=== PATIENT | female | born 1990 | race African-American/Black ===

== ENCOUNTER 2017-11-17 14:50 | Outpatient (CLI) | payer MEDICAID, OTHER ==
[2017-11-17 18:48] LABS: BASOPHILS % (AUTO) 0.4 %; EOSINOPHILS % (AUTO) 0.7 %; HGB - HEMOGLOBIN 11.3 g/dL (12.0-16.0); LYMPHOCYTES % (AUTO) 48.3 %; MEAN CORPUSCULAR HEMOGLOBIN 22.9 pg (27.0-31.0); MEAN CORPUSCULAR HGB CONC 31.4 g/dL (32.0-36.0); MEAN CORPUSCULAR VOLUME 73.2 fL (81.0-99.0); MEAN PLATELET VOLUME 8.8 fL (7.9-10.8); MONOCYTES # (AUTO) 0.3 10^3/uL (0.0-1.0); MONOCYTES % (AUTO) 4.8 %; NEUTROPHILS # (AUTO) 2.9 10^3/uL (1.5-6.6); NEUTROPHILS % (AUTO) 45.8 %; PLT - PLATELET COUNT 277 10^3/uL (130-450); RED BLOOD COUNT 4.91 10^6/uL (4.20-5.40); WHITE BLOOD COUNT 6.2 x10^3/uL (4.8-10.8)
[2017-11-17 19:27] LABS: ALBUMIN 4.5 g/dL (3.2-5.5); ALBUMIN/GLOBULIN RATIO 1.5 (1.0-2.2); ALKALINE PHOSPHATASE 31 IU/L (42-121); ALT ALANINE AMINOTRANSFERASE 33 IU/L (10-60); AST ASPARTATE AMINOTRANSFERASE 27 IU/L (10-42); BILIRUBIN,TOTAL 0.6 mg/dL (0.2-1.0); BUN - BLOOD UREA NITROGEN 13 mg/dL (6-20); CARBON DIOXIDE - CO2 23 mmol/L (21-32); CHLORIDE 105 mmol/L (101-111); CHOL/HDL RATIO 2.4 (<4.4); CHOLESTEROL 161 mg/dL; CREATININE 0.7 mg/dL (0.4-1.0); GFR - MDRD 120 (>89); GLUCOSE 86 mg/dL (70-100); HDL CHOLESTEROL 67 mg/dL; LDL CHOLESTEROL,CALCULATED 86 mg/dL; LDL/HDL RATIO 1.3 (<4.4); SODIUM 138 mmol/L (135-145); TOTAL PROTEIN 7.5 g/dL (6.7-8.2); VLDL CHOLESTEROL 8 mg/dL
== END 2017-11-17 14:51 ==
LOC: LAB.N 14:50
PROVIDERS: ATTEND Nurse Practitioner Gerontology
DX: Z13.9 Encounter for screening, unspecified (principal)
CPT/HCPCS: 36415; 80053; 80061; 83721; 84443; 85025

== ENCOUNTER 2020-08-23 15:18 | Outpatient (CLI) | payer MEDICAID ==
--- NOTE | 2020-08-23 17:01 | Ultrasound Report ---
PROCEDURE: Pelvic w/Transvaginal INDICATIONS: RT SIDE OVARIAN CYST TECHNIQUE: Real-time scanning was performed of the pelvic organs, with image documentation. Additional endovagi nal scanning was necessary due to incomplete visualization of the adnexal and endometrial structures by transabdominal scanning. COMPARISON: None. FINDINGS: Transabdominal scanning: Limited scanning through the kidneys shows no hydronephrosis. No pathologi c free abdominal or pelvic fluid. Endovaginal scanning: Uterus: Uterus is normal in size at 8.8 x 4.6 x 5.4 cm. The endometrium measures 10 mm in combined thickness. Uterine echotexture is heterogenous. A submucosal fibroid measuring 2.7 x 2.0 x 2.5 cm is seen in the anterior uterus. The cervix has nabothian cyst but is otherwise normal. Ovaries: The right ovary measures 3.1 x 2.2 x 2.8 cm and has multiple subcentimeter follicles (less than 12). The left ovary measures 4.4 x 2.9 x 2.9 cm and has multiple subcentimeter follicles. A 2.6 x 2.5 x 2.6 cm cyst in the left ovary has a crenated appearance, possibly due to recent rupture. Adnexa: There is free fluid in the left adnexa. Kidneys: The right kidney is normal. The left kidney has a hyperechoic focus measuring 8 x 9 x 8 mm l ikely an angiomyolipoma. IMPRESSION: 1. Subcentimeter follicles in the right ovary. No right ovarian cyst. 2. A dominant cyst in the left ovary measuring 2.6 x 2.5 x 2.6 cm has a crenated appearance and adjac ent free fluid, possibly due to recent ruptured cyst. 3. Subcentimeter left renal benign angiomyolipoma. Reviewed by: Abdoulaye Aldana on 08/23/2020 5:00 PM PST Approved by: Abdoulaye Aldana on 08/23/2020 5:00 PM PST Station ID: [id number]
== END 2020-08-23 15:19 | disposition home or self-care (01) ==
LOC: DI 15:18
PROVIDERS: ATTEND Physician Assistant
DX: N83.202 Unspecified ovarian cyst, left side (principal); D17.71 Benign lipomatous neoplasm of kidney
CPT/HCPCS: 76830; 76856

== ENCOUNTER 2021-09-29 17:44 | Emergency (ER) | payer MEDICAID ==
--- NOTE | 2021-09-29 18:04 | ED Physician Documentation ---
History of Present Illness - Stated complaint Stated Complaint: CP - Chief complaint Chief Complaint: Cardiac - Additonal information Additional information: 31-year-old female presents emergency department for evaluation of left sided chest pain. Began a few hours prior to arrival. She reports that it hurts when she takes a deep breath. She sometimes has relief of the pain when she puts pressure on the ribs under her breast but when she releases the pressure the pain comes back. No cough, no fevers. No personal history of DVT or cancer. She is not on any hormones. She did travel via airplane to [facility] in late August. Does not know her family history she is adopted. She is a daily tobacco user as well as cannabis. No history of similar in the past. Denies any pertinent past medical history otherwise. Review of Systems Constitutional: denies: Fever, Chills Eyes: reports: Reviewed and negative Ears: reports: Reviewed and negative Nose: reports: Reviewed and negative Throat: reports: Reviewed and negative Cardiac: reports: Chest pain / pressure. denies: Palpitations, Pedal edema, Calf pain Respiratory: denies: Dyspnea, Cough GI: reports: Reviewed and negative : reports: Reviewed and negative Skin: reports: Reviewed and negative Musculoskeletal: reports: Reviewed and negative Neurologic: reports: Reviewed and negative PD PAST MEDICAL HISTORY - Present Medications Home Medications: Ambulatory Orders Medication Instructions Recorded Confirmed No Known Home Medications 09/29/21 09/29/21 - Allergies Allergies/Adverse Reactions: Allergies Allergy/AdvReac Type Severity Reaction Status Date / Time No Known Drug Allergies Allergy Verified 09/29/21 17:53 PD ED PE NORMAL - General General: Alert and oriented X 3, No acute distress - HEENT HEENT: PERRL - Neck Neck: Supple, no meningeal sign - Cardiac Cardiac: RRR, No murmur, No gallop, No rub, Strong equal pulses, Other (Unable to elicit tenderness with palpation of left lateral chest) - Respiratory Respiratory: No respiratory distress, Clear bilaterally - Abdomen Abdomen: Normal bowel sounds, Soft, Non tender, Non distended - Derm Derm: Normal color, Warm and dry, No rash - Extremities Extremities: No: No deformity, No tenderness to palpate, Normal ROM s pain - Neuro Neuro: Alert and oriented X 3, 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, No motor deficit Eye Opening: Spontaneous Motor: Obeys Commands Verbal: Oriented GCS Score: 15 - Psych Psych: Normal mood Results - Vitals Vitals: Vital Signs - 24 hr 09/29/21 09/29/21 17:49 17:53 Temperature 36.6 C 36.6 C Heart Rate 86 86 Respiratory 16 16 Rate Blood Pressure 130/73 130/73 O2 Saturation 97 97 Oxygen O2 Source Room air - EKG (time done) 1749 Rate: Rate (enter#) (68) Rhythm: NSR [place]: Normal Intervals: Normal CT QRS: Normal Ischemia: Normal ST segments Compare to prior EKG: Old EKG unavailable Computer interpretation: Agree with computer - Labs Labs: Laboratory Tests 09/29/21 09/29/21 09/29/21 18:02 18:02 18:02 WBC 7.0 RBC 4.93 Hgb 12.1 Hct 37.0 MCV 75.1 L MCH 24.5 L MCHC 32.7 RDW 13.2 Plt Count 318 MPV 10.3 Neut # (Auto) 3.0 Lymph # (Auto) 3.4 Martin # (Auto) 0.5 Eos # (Auto) 0.1 Baso # (Auto) 0.0 Absolute Nucleated RBC 0.00 Nucleated RBC % 0.0 D-Dimer < 200.0 L Sodium 134 L Potassium 3.9 Chloride 101 Carbon Dioxide 24 Anion Gap 9.0 BUN 14 Creatinine 0.8 Estimated GFR (MDRD) 100 Glucose 88 Calcium 8.7 Total Bilirubin 0.5 AST 22 ALT 29 Alkaline Phosphatase 35 L Troponin I High Sens Total Protein 7.3 Albumin 4.2 Globulin 3.1 Albumin/Globulin Ratio 1.4 Lipase 20 L Serum HCG, Qual 09/29/21 09/29/21 18:02 18:02 WBC RBC Hgb Hct MCV MCH MCHC RDW Plt Count MPV Neut # (Auto) Lymph # (Auto) Martin # (Auto) Eos # (Auto) Baso # (Auto) Absolute Nucleated RBC Nucleated RBC % D-Dimer Sodium Potassium Chloride Carbon Dioxide Anion Gap BUN Creatinine Estimated GFR (MDRD) Glucose Calcium Total Bilirubin AST ALT Alkaline Phosphatase Troponin I High Sens < 2.3 L Total Protein Albumin Globulin Albumin/Globulin Ratio Lipase Serum HCG, Qual NEGATIVE - Rads (name of study) CXR Radiology: Final report received (No acute cardiopulmonary pathology.) PD MEDICAL DECISION MAKING - ED course Complexity details: reviewed results, re-evaluated patient, considered differential, d/w patient ED course: This is a well-appearing 31-year-old female presents emergency department for acute onset left-sided chest pain that began this afternoon. She reports it is worse when she bends forward to and she has relief of pain when she presses on the ribs under her breast. There has been no cough or fevers. Patient is PERC negative. Screening EKG is nonischemic. No findings suggestive of pericarditis. Blood count and elect lites including a troponin are also without acute fi ndings. Chest x-ray showed no acute focal opacity. Initially patient declined any pain medication but on reassessment agreed to some Toradol. Given that this pain is worse with movement and bending forward and seems relieved when she puts pressure on her ribs I do suspect that she has a musculoskeletal condition or costochondritis. I have advised her to use some ibuprofen with food 3 times a day for the next few days. We discussed emergent return precautions for fevers syncope worsening symptoms. Departure - Departure Disposition: 01 Home, Self Care Clinical Impression: Chest pain Qualifiers: Chest pain type: intercostal pain Qualified Code(s): R07.82 - Intercostal pain Condition: Stable Record reviewed to determine appropriate education?: Yes Instructions: ED Chest Pain Costochondritis Comments: You are seen today in the emergency department for chest pain. Your screening EKG and labs are all essentially normal. Your chest x-ray does not show any worrisome findings. As we discussed at the bedside the cause of your chest pain is most likely related to some mild muscle inflammation between the muscles of your ribs. I do recommend that you take ibuprofen 600 mg with food 2-3 times a day for the next few days. If despite this, or you develop fevers higher than 102, you have any fainting episodes or severe shortness of breath then please return immediately to the ER for second evaluation
[2021-09-29 18:09] LABS: BASOPHILS % (AUTO) 0.3 %; EOSINOPHILS # (AUTO) 0.1 10^3/uL (0.0-0.7); EOSINOPHILS % (AUTO) 1.6 %; HGB - HEMOGLOBIN 12.1 g/dL (12.0-16.0); LYMPHOCYTES # (AUTO) 3.4 10^3/uL (1.5-3.5); LYMPHOCYTES % (AUTO) 47.9 %; MEAN CORPUSCULAR HEMOGLOBIN 24.5 pg (27.0-31.0); MEAN CORPUSCULAR HGB CONC 32.7 g/dL (32.0-36.0); MEAN CORPUSCULAR VOLUME 75.1 fL (81.0-99.0); MEAN PLATELET VOLUME 10.3 fL (7.9-10.8); MONOCYTES # (AUTO) 0.5 10^3/uL (0.0-1.0); MONOCYTES % (AUTO) 7.3 %; NEUTROPHILS % (AUTO) 42.8 %; PLT - PLATELET COUNT 318 10^3/uL (130-450); RED BLOOD COUNT 4.93 10^6/uL (4.20-5.40); RED CELL DISTRIBUTION WIDTH 13.2 % (12.0-15.0)
[2021-09-29 18:24] LABS: ALBUMIN 4.2 g/dL (3.2-5.5); ALBUMIN/GLOBULIN RATIO 1.4 (1.0-2.2); BILIRUBIN,TOTAL 0.5 mg/dL (0.2-1.0); CALCIUM 8.7 mg/dL (8.5-10.3); CREATININE 0.8 mg/dL (0.4-1.0); POTASSIUM 3.9 mmol/L (3.5-5.0); TOTAL PROTEIN 7.3 g/dL (6.7-8.2)
--- NOTE | 2021-09-29 18:25 | XRAY Report ---
PROCEDURE: Chest 1 View X-Ray INDICATIONS: Chest Pain TECHNIQUE: One view of the chest was acquired. COMPARISON: None. FINDINGS: SUPPORT DEVICES: None. LUNGS/PLEURA: No focal consolidation, pleural effusion or space-occupying pneumothorax. MEDIASTINUM: The cardiomediastinal silhouette is within normal limits. BONES/SOFT TISSUES: No acute abnormality. IMPRESSION: 1.No acute cardiopulmonary abnormality. Reviewed by: Garett Bess MD on 09/29/2021 6:[address] [facility] Approved by: Garett Bess MD on 09/29/2021 6:[address] [facility] Station ID: [id number]
[2021-09-29 18:32] LABS: HCG,QUALITATIVE BLOOD NEGATIVE
[2021-09-29] MEDS ORDERED: KETOROLAC 60 MG/2 ML VIAL IM STA (18:46)
[2021-09-29 19:02] VITALS: BP 126/72
== END 2021-09-29 19:02 | disposition home or self-care (01) ==
LOC: ED 17:44
DX: R07.82 Intercostal pain (principal); Z72.0 Tobacco use
CPT/HCPCS: 36415; 80053; 83690; 84484; 84703; 85025; 85379; 93005; 99284

== ENCOUNTER 2024-04-05 11:28 | Outpatient (CLI) | payer MEDICAID ==
[2024-04-05 11:42] LABS: BASOPHILS % (AUTO) 0.4 %; EOSINOPHILS # (AUTO) 0.1 10^3/uL (0.0-0.7); EOSINOPHILS % (AUTO) 1.3 %; HCT - HEMATOCRIT 39.2 % (37.0-47.0); HGB - HEMOGLOBIN 12.5 g/dL (12.0-16.0); LYMPHOCYTES # (AUTO) 3.1 10^3/uL (1.5-3.5); LYMPHOCYTES % (AUTO) 38.7 %; MEAN CORPUSCULAR HEMOGLOBIN 23.9 pg (27.0-31.0); MEAN CORPUSCULAR HGB CONC 31.9 g/dL (32.0-36.0); MEAN PLATELET VOLUME 10.6 fL (7.9-10.8); MONOCYTES # (AUTO) 0.3 10^3/uL (0.0-1.0); MONOCYTES % (AUTO) 4.3 %; NEUTROPHILS # (AUTO) 4.3 10^3/uL (1.5-6.6); NEUTROPHILS % (AUTO) 54.9 %; PLT - PLATELET COUNT 346 10^3/uL (130-450); RED BLOOD COUNT 5.23 10^6/uL (4.20-5.40); RED CELL DISTRIBUTION WIDTH 13.3 % (12.0-15.0); WHITE BLOOD COUNT 7.9 x10^3/uL (4.8-10.8)
[2024-04-05 12:03] LABS: ALBUMIN 4.5 g/dL (3.2-5.5); ALBUMIN/GLOBULIN RATIO 1.6 (1.0-2.2); ALKALINE PHOSPHATASE 43 IU/L (42-121); ALT ALANINE AMINOTRANSFERASE 22 IU/L (10-60); AST ASPARTATE AMINOTRANSFERASE 15 IU/L (10-42); BILIRUBIN,TOTAL 0.3 mg/dL (0.2-1.0); BUN - BLOOD UREA NITROGEN 13 mg/dL (6-20); CALCIUM 9.3 mg/dL (8.5-10.3); CARBON DIOXIDE - CO2 25 mmol/L (21-32); CHLORIDE 107 mmol/L (101-111); CHOL/HDL RATIO 3.3 (<4.4); CHOLESTEROL 174 mg/dL; CREATININE 0.8 mg/dL (0.6-1.3); GFR - MDRD 98 (>89); GLUCOSE 111 mg/dL (74-104); HDL CHOLESTEROL 52 mg/dL; LDL CHOLESTEROL,CALCULATED 94 mg/dL; LDL/HDL RATIO 1.8 (<4.4); POTASSIUM 3.8 mmol/L (3.5-4.5); SODIUM 136 mmol/L (135-145); TOTAL PROTEIN 7.3 g/dL (6.4-8.9); TRIGLYCERIDES 141 mg/dL (48-352); VLDL CHOLESTEROL 28 mg/dL
[2024-04-05 12:19] LABS: THYROID STIMULATING HORMONE 1.57 uIU/mL (0.34-5.60)
[2024-04-05 12:54] LABS: ESTIMATED AVERAGE GLUCOSE 100 mg/dL (70-100); HEMOGLOBIN A1c% 5.1 % (4.27-6.07)
== END 2024-04-05 11:29 | disposition home or self-care (01) ==
LOC: LAB 11:28
PROVIDERS: ATTEND Nurse Practitioner Family
DX: Z00.00 Encounter for general adult medical examination without abnormal findings (principal)
CPT/HCPCS: 36415; 80053; 80061; 83036; 83721; 84443; 85025

== ENCOUNTER 2024-05-06 15:53 | Outpatient (CLI) | payer MEDICAID ==
[2024-05-06 18:46] LABS: CHLAMYDIA TRACHOMATIS DNA NEGATIVE (NEGATIVE); NEISSERIA GONORRHOEAE DNA NEGATIVE (NEGATIVE); TRICHOMONAS VAGINALIS DNA NEGATIVE (NEGATIVE)
== END 2024-05-06 15:54 | disposition home or self-care (01) ==
LOC: LAB.WC 15:53
PROVIDERS: ATTEND Obstetrics & Gynecology
DX: Z11.3 Encounter for screening for infections with a predominantly sexual mode of transmission (principal)
CPT/HCPCS: 87491; 87591; 87661

== ENCOUNTER 2024-05-21 11:11 | Outpatient (CLI) | payer MEDICAID ==
--- NOTE | 2024-05-21 23:12 | Ultrasound Report ---
PROCEDURE: Pelvic w/Transvaginal INDICATIONS: RLQ ABD PAIN TECHNIQUE: Real-time scanning was performed of the pelvic organs, with image documentation. Additional endovagi nal scanning was necessary due to incomplete visualization of the adnexal and endometrial structures by transabdominal scanning. COMPARISON: 08/23/2020. FINDINGS: Uterus: Uterus is anteverted and normal in size at 8.5 x 3.4 x 4.1 cm. The myometrium is heterogene ous. The endometrium measures 3 mm in combined thickness. Previously described submucosal uterine f ibroid is not visualized on today's examination. Ovaries: The right ovary measures 2.3 x 1.8 x 1.3 cm, with a calculated ovarian volume of 3.0 cc. T he left ovary measures 2.8 x 1.9 x 2.9 cm, with a calculated ovarian volume of 8.2 cc. The ovaries h ave a normal sonographic appearance. Less than 12 follicles can be seen in each ovary. No adnexal m asses are seen. No cystic lesions measuring greater than 3 cm. Other: No pathologic free abdominal or pelvic fluid. IMPRESSION: Pelvis without acute sonographic abnormalities. Heterogeneous uterine echotexture without focal fibroid identified. Reviewed by: Tristen Pak MD on 05/21/2024 11:10 PM PDT Approved by: Tristen aPk MD on 05/21/2024 11:10 PM PDT Station ID: [id number]
== END 2024-05-21 11:12 | disposition home or self-care (01) ==
LOC: DI 11:11
PROVIDERS: ATTEND Obstetrics & Gynecology
DX: R10.31 Right lower quadrant pain (principal)

== ENCOUNTER 2024-06-07 06:19 | Day surgery (SDC) | payer MEDICAID ==
[2024-06-07] MEDS ORDERED: ACETAMINOPHEN 325 MG TABLET PO ONE (06:24)
[2024-06-07] MEDS: LACTATED RINGERS 1,000 ML IV ONE ×2 (06:27→08:35)
[2024-06-07 06:44] LABS: HCG UR QUAL NEGATIVE
[2024-06-07] MEDS ORDERED: DEXAMETHASONE 4 MG/ML VIAL ONE (06:52)
[2024-06-07] MEDS ORDERED: MIDAZOLAM 2 MG/2 ML VIAL ONE (06:52)
[2024-06-07] MEDS ORDERED: LIDOCAINE-PF 2% 10 ML AMP SUBQ ONE (06:52)
[2024-06-07] MEDS ORDERED: fentaNYL 100 MCG/2 ML VIAL ONE (06:52)
[2024-06-07] MEDS ORDERED: ONDANSETRON 4 MG/2 ML VIAL ONE (06:52)
[2024-06-07] MEDS ORDERED: PROPOFOL 200 MG/20 ML VIAL IVP ONE (06:52)
[2024-06-07] MEDS ORDERED: BUPIVACAINE 0.25% PF 30 ML VIAL ONE (06:57)
[2024-06-07] MEDS ORDERED: ROCURONIUM 50 MG/5 ML VIAL ONE (07:01)
--- NOTE | 2024-06-07 07:17 | ANESTHESIA ---
Pre-Anesthesia VS, & Labs - Diagnosis desires sterilization - Procedure laparoscopic salpingectomy Vital Signs: Temp Pulse Resp BP Pulse Ox O2 Flow Rate 36.8 C 67 16 124/87 H 100 06/07/24 06:37 06/07/24 06:37 06/07/24 06:37 06/07/24 06:37 06/07/24 06:37 Height: 5 ft 3.5 in Weight (kg): 83.8 kg Body Mass Index: 32.2 BMI Classification: Obese - NPO >8 hours - Is Patient ?: No - Lab Results Lab results reviewed: Yes Home Medications and Allergies No Known Home Medications 09/29/21 Allergies/Adverse Reactions: Allergies Allergy/AdvReac Type Severity Reaction Status Date / Time No Known Drug Allergies Allergy Verified 06/07/24 06:28 Anes History & Medical History - Anesthetic History Anesthesia Complications: reports: No previous complications Family history of Anesthesia Complications: Denies Family history of Malignant Hyperthermia: Denies - Medical History Cardiovascular: reports: None Pulmonary: reports: None Gastrointestinal: reports: None Urinary: reports: None Musculoskeletal: reports: None Endocrine/Autoimmune: reports: None Skin: reports: None Smoking Status: Current every day smoker Psychosocial: reports: Alcohol, Cannabis, Other (bipolar disorder per pt, unmedicated) History of Cancer?: No Exam General: Alert, Oriented x3, Cooperative Dental: WNL Mouth Openin Fingerbreadth Neck Mobility: Normal Mallampati classification: II Thyromental Distance: 4-6 cm Respiratory: Lungs clear, Normal breath sounds, No respiratory distress Cardiovascular: Regular rate Neurological: Normal speech Mental/Cognitive Status: Alert/Oriented X3, Normal for patient Cognitive Status: Within normal limits Plan Anesthesia Type: General Consent for Procedure(s) Verified and Reviewed: Yes Code Status: Attempt Resuscitation ASA classification: 2-Mild systemic disease Is this case an emergency?: No
[2024-06-07] MEDS ORDERED: METOCLOPRAMIDE 10 MG/2 ML VIAL IVP PRN (07:19)
[2024-06-07] MEDS ORDERED: ePHEDrine 50 MG/ML VIAL IVP PRN (07:19)
[2024-06-07] MEDS ORDERED: fentaNYL 100 MCG/2 ML VIAL IVP PRN (07:19)
[2024-06-07] MEDS ORDERED: NALOXONE 0.4 MG/ML VIAL IVP PRN (07:19)
[2024-06-07] MEDS ORDERED: MORPHINE 2 MG/ML CARPUJECT IVP PRN (07:19)
[2024-06-07] MEDS ORDERED: ATROPINE ABBOJECT 1 MG/10 ML SYRINGE IVP PRN (07:19)
[2024-06-07] MEDS ORDERED: ONDANSETRON 4 MG/2 ML VIAL IVP PRN (07:19)
[2024-06-07] MEDS ORDERED: HYDROmorphone 0.5 MG/0.5 ML SYRINGE IVP PRN (07:19)
[2024-06-07] MEDS ORDERED: LACTATED RINGERS 1,000 ML IV SCH (08:00)
[2024-06-07] MEDS: BUPIVACAINE 0.25% PF 30 ML VIAL SUBQ ONE ×2 (08:10)
[2024-06-07] MEDS ORDERED: SUGAMMADEX 200 MG/2 ML VIAL IVP ONE (08:13)
[2024-06-07] MEDS ORDERED: HYDROmorphone 1 MG/ML CARPUJECT ONE (08:16)
[2024-06-07] MEDS ORDERED: KETOROLAC 30 MG/ML VIAL ONE (08:16)
[2024-06-07] MEDS ORDERED: oxyCODONE 5 MG TABLET PO PRN (08:32)
--- NOTE | 2024-06-07 08:45 | OPERATIVE REPORT ---
Operative Report - Procedure Note IV Fluids (mL): 700 Estimated Blood Loss (mL): 5 Urine Output (mL): 0 Complications: none - Other Other Information/Narrative: Surgery Operative Note Date of Procedure: 06/07/24 Pre-Op Diagnosis: undesired fertility Post-Op Diagnosis: undesired fertility Procedure: laparoscopic bilateral salpingectomies Surgeon: Judith Whitehead MD Silk Opener in OR: Duy Durbin MD My parking assistant was present throughout the entire case and assisted with placing trocars, retraction and tissue stabilization and closing the abdominal incisions after the case was completed. Anesthesia Type: General with ETT by Alex Salcedo CRNA and Nessa PAYNE - student Findings: normal appearing pelvic organs Clinical history: Patient is a 34 yo with one child - 15 yo son, who presents for laparoscopy for sterilization. She has been counseled that this procedure should be considered permanent and irreversible and she is sure that she never wants to be able to spontaneously get again. Procedure: After explaining the risks and benefits, indications and alternatives, the patient was taken to the operating room where general anesthesia was induced without difficulty. She was then prepped and draped in the normal sterile fashion in the dorsal lithotomy position in [facility] stirrups. A timeout was performed. SCDs were on prior to procedure. Preoperative antibiotics were not indicated. A graves speculum was placed in the vagina I grasped the cervix with a tenaculum and the uterine manipulator was placed. I removed the speculum and catheter was not placed. I then changed my gloves and turned attention to the patient's abdomen. The umbilicus was infiltrated with quarter percent Marcaine. A 5mm incision was made in the base of the umbilicus. A 5 mm optical port was placed with a 5 mm 0 degree scope. The abdomen was filled with CO2 gas to 15 mm hg of pressure. Other 5 mm ports were placed in the left and the right lower mid abdomen.The right tube was grasped and elevated. The LigaSure device was used to seal and transect the mesosalpinx freeing the tube. Care was taken to avoid the infundibulopelvic, utero-ovarian and round ligaments. The tube was then brought up through the trocar and sent for pathology. A similar procedure was done on the left side. The areas of dissection were hemostatic. Pictures were taken. The rest of the pelvis appears normal. The ports were then removed. The skin was closed with 4-0 Monocryl and then steri strips and bandaids were placed on all the incisions. Vaginal instruments and catheter were removed and patient was awakened, extubated, and taken to PACU in stable condition. Specimens Removed: bilateral fallopian tubes, photographed and discarded as agreed to pre-op Complications: None Implants/Grafts: none
--- NOTE | 2024-06-07 09:20 | ANESTHESIA POST OP EVALUATION ---
Anesthesia Post Eval - Post Anesthesia Eval Vitals: Last Vital Signs Temp 36.4 C L 06/07/24 08:56 Pulse 76 06/07/24 08:56 Resp 16 06/07/24 08:56 BP 125/94 H 06/07/24 08:56 Pulse Ox 100 06/07/24 08:56 O2 Flow Rate CV Function Including HR & BP: Stable Pain Control: Satisfactory Nausea & Vomiting: Negative Mental Status: Baseline Respiratory Status: Airway Patent Hydration Status: Satisfactory Anesthesia Complications: None
[2024-06-07 09:31] VITALS: BP 122/94; O2SAT 98
== END 2024-06-07 06:20 | disposition home or self-care (01) ==
LOC: SDS 06:19
PROVIDERS: ATTEND Obstetrics & Gynecology
DX: Z30.2 Encounter for sterilization (principal); F17.200 Nicotine dependence, unspecified, uncomplicated; E66.9 Obesity, unspecified; Z32.02 Encounter for pregnancy test, result negative; Z68.32 Body mass index [BMI] 32.0-32.9, adult
CPT/HCPCS: 58661; 81025; A9270; J1170; J7120